=== PATIENT | male | born 1960 | race Caucasian/White ===

== ENCOUNTER 2017-01-04 22:32 | Emergency (ER) | payer BC ==
[~2017-01-04] VITALS: Ht 182.9 cm; Wt 81.5 kg
[2017-01-04 22:37] VITALS: Ht 182.9 cm; Wt 81.5 kg
[2017-01-04] MEDS ORDERED: OXYMETAZOLINE 0.05% NASAL SPRAY 15 ML EA NOSTRIL ONE (23:15)
[2017-01-04] MEDS ORDERED: LIDOCAINE 4% (40mg/ml) 5ml (For Resp.Tx) AEROSOL ONE (23:15)
--- NOTE | 2017-01-04 23:29 | ERPDOC ---
Departure Disposition Decision Date: January 05, 2017 Disposition Decision Time: 01:38 Disposition: 02 TO [facility] Impression Impression Impression: Primary Impression: Thrombocytopenia Additional Impressions: Epistaxis Petechial rash Severity: Moderate Condition: Improved Seen By: Physician only Referrals: MYRA DIEGO MD (Family) Problems/Meds/Labs Reviewed?: Yes Medications reviewed and manag: Yes Follow up care ordered?: Yes Mental Status: Alert, Oriented Scripts No Active Prescriptions or Reported Meds HPI - Headache General Chief Complaint: Nosebleed Stated Complaint: NOSE BLEEDING,HEADACHE X 4 DAYS Time Seen by Provider: 23:08 Source: patient, family Exam Limitations: no limitations HPI - Headache Initial Comments 4-5 days ago the patient began having a frontal headache, and then subsequently began having frequent nosebleeds over the past 4 days. Patient has also noticed that he has petechial rash to the backs of his hands forearms. is concerned that he may have some bleeding disorder and a head bleed. Nosebleeds have come and gone, and currently patient has no active bleeding. When he does get the bleeding, initially feels trickling down the back of his throat, and then at the front on the left nares. Patient has had several episodes in the past of abnormal bleeding in his urine as well as during ejaculation. Occurred At: home Onset: Gradual Duration: 1 week Location: frontal Associated Symptoms: DENIES: confusion, facial pain, fatigue, fever/chills, flushing, loss of consciousness, nasal congestion, nasal drainage, nausea/ vomiting, numbness in legs/feet, rash, seizures, sinus infection, stiff neck, vision changes, weakness Hx of Similar Symptoms: No Allergies: Coded Allergies: No Known Allergies (Unverified , 03/06/15) Past History Vaccines Hx Influenza Vaccination: No Hx Pneumococcal Vaccination: No Review of Systems Constitutional Constitutional: DENIES: appetite decrease, appetite increase, chills, dizziness , fever, weakness ENMT Ears: DENIES: pain Hearing: DENIES: hearing loss, tinnitus Balance: DENIES: vertigo Nose: nosebleeds Mouth/Throat: DENIES: change in swallowing, change in voice, hoarsness, painful swallowing, sore throat Cardiovascular Cardiac: DENIES: chest pain, dyspnea on exertion Rhythm/Rate: DENIES: irregular beat, palpitations, tachycardia Vascular: DENIES: pedal edema Pulmonary Respiratory: DENIES: cough, dyspnea, pleuritic chest pain GI Upper Abdomen: DENIES: dysphagia, heartburn/indigestion, nausea, pain, vomiting Lower Abdomen: DENIES: blood in stool, constipation, diarrhea, pain General: DENIES: burning, dysuria, frequency, pain, urgency Musculoskeletal General: DENIES: cramps, joint pain, joint swelling, pain, weakness Integumentary Skin: rash Neurological General: DENIES: headache, numbness, tingling, vertigo, weakness Psychiatric Psychiatric: DENIES: anxiety, depression, nervousness Physical Exam General General Nourishment: well nourished, well developed, appears stated age, no acute distress General Body Habitus: well groomed Vitals and Pain First Documented Vital Signs Date Time Temp Pulse Resp B/P Pulse Ox O2 Delivery O2 Flow Rate FiO2 01/04/17 22:37 98.5 76 18 170/82 97 Room Air Weight: Kilograms: 81.500 Height (feet): 6 Height (inches): 0 Triage Pain Scale: RN VS reviewed by Provider: Yes Normal Exams: Head: Normocephalic w/o trauma Eyes: Pupils are PERRLA w/ EOMI, No scleral icterus, irritation, or foreign bodies noted ENMT (brief) ENMT Brief: FOUND: TM clear, TM good light reflex, ear canals clear, mucosa moist, normal dentition, NOT FOUND: nasal erythema, nasal exudate, nasal swelling, tonsillar deviation Comments Patient has a small amount of bloody mucus in the left naris, no visible origin of bleeding, no clots Neck (brief) Neck: FOUND: trachea midline, NOT FOUND: adenopathy, nuchal rigidity, spasm, tenderness, thyromegaly, tracheal deviation Respiratory (brief) Respiratory: FOUND: clear all benton, equal bilaterally, symmetrical, NOT FOUND : rales, tenderness, wheezes Cardiovascular (brief) Cardiac: FOUND: regular rate, regular rhythm, NOT FOUND: click, gallop, murmur , pedal edema Capillary Refill: <2 sec Pulses: all distal extremities, equal, strong Abdomen (brief) Abdominal Brief: FOUND: bowel normo active x4, soft, NOT FOUND: distended, hepatosplenomegaly, tender Lymphatic (brief) Lymphatic Brief: NOT FOUND: adenopathy, lymphedema Musculoskeletal (brief) Musculoskeletal Brief: NOT FOUND: deformity, loss of motion, spasm, tenderness Integumentary (brief) Integumentary Brief: FOUND: dry, pink, rash, warm Neurologic (brief) Neurological Brief: FOUND: CN w/o gross def to obs, DTR 2/4 all extremities, gait w/o gross def to obs, motor-no gross deficits, sensory-no gross deficits, NOT FOUND: ataxia Psychiatric (brief) Psychiatric Brief: FOUND: alert, attentive, normal affect, oriented Progress Results/Orders Orders Procedure Category Date Status Time Oxymetazoline Nasal PHA 01/04/17 Complete [place] (Afrin Nasal S 23:15 Lidocaine 4% PHA 01/04/17 Complete (Resp.Tx) (Lidocaine 23:15 Cbc W/Auto LAB 01/04/17 Complete Diff-Reflex Manual PTT LAB 01/04/17 Complete INR LAB 01/04/17 Complete Cmp - Comprehensive LAB 01/04/[address] Head W/O Contrast CT 01/04/17 Taken Lab Results Laboratory Tests Test 01/04/17 23:45 White Blood Count 2.0T/MM3 Red Blood Count 3.64M/MM3 Hemoglobin 11.9GM/DL Hematocrit 31.6% Mean Corpuscular Volume 86.8UM3 Mean Corpuscular Hemoglobin 32.7UUG Mean Corpuscular Hemoglobin Concent 37.7GM/DL RDW Standard Deviation 37.4FL Platelet Count 8T/MM3 Mean Platelet Volume UM3 Immature Granulocyte % (Auto) % Neutrophils (%) (Auto) % Lymphocytes (%) (Auto) % Monocytes (%) (Auto) % Eosinophils (%) (Auto) % Basophils (%) (Auto) % Absolute Immature Granulocyte (auto T/MM3 Absolute Neutrophils (auto) T/MM3 Absolute Lymphocytes (auto) T/MM3 Absolute Monocytes (auto) T/MM3 Absolute Eosinophils (auto) T/MM3 Absolute Basophils (auto) T/MM3 Neutrophils % (Manual) 24.0% Band Neutrophils % 2.0% Lymphocytes % (Manual) 48.0% Monocytes % (Manual) 18.0% Basophils % (Manual) 2.0% Metamyelocytes % 2.0% Myelocytes % 2.0% Blast Cells % 2.0% Absolute Neutrophils (Manual) 0.5T/MM3 Band Neutrophils # 0.0T/MM3 Lymphocytes # (Manual) 1.0T/MM3 Monocytes # (Manual) 0.4T/MM3 Basophils # (Manual) 0.0T/MM3 Metamyelocytes # 0.0T/MM3 Myelocytes # 0.0T/MM3 Nucleated Red Blood Cells 4 Blast Cells # 0.0T/MM3 Red Cell Morphology Comment Normal Prothromb Time International Ratio 1.23 Activated Partial Thromboplast Time 27.3SEC Turbidity 22 Sodium Level 142MEQ/L Potassium Level 3.7MEQ/L Chloride Level 103MEQ/L Carbon Dioxide Level 25MEQ/L Anion Gap 14MEQ/L Blood Urea Nitrogen 15.0MG/DL Creatinine 0.7MG/DL Glomerular Filtration Rate Calc 116 BUN/Creatinine Ratio 21RATIO Glucose Level 290MG/DL Calculated Osmolality 285MOSM/KG Calcium Level 9.0MG/DL Total Bilirubin 0.70MG/DL Icterus Index < 2 Aspartate Amino Transf (AST/SGOT) 50U/L Alanine Aminotransferase (ALT/SGPT) 57U/L Alkaline Phosphatase 73U/L Total Protein 6.6G/DL Albumin 4.2G/DL Globulin 2.4G/DL Albumin/Globulin Ratio 1.8RATIO Chemistry Specimen Hemolysis < 15 Medications Current ED Medications Oxymetazoline HCl (Afrin Nasal [place]) 2 spray O ONCE EA NOSTRIL ; Start at 23:15; Stop 01/04/17 at 23:16; Status DC Lidocaine HCl (LIDOCAINE 4% (Resp.Tx)) 4 mg O ONCE AEROSOL ; Start 01/04/17 at 23:15; Stop 01/04/17 at 23:16; Status DC Progress Progress Shared decision making, patient and his would like testing done at this time, CT head - normal CBC - negative again abnormalities including low white blood cell count at 2, low platelet count at 8 CMP - essentially normal, mild elevated glucose PTT - normal INR - David elevated at 1.2 Case is discussed with Dr. Johnston, then Dr. Dawson and Dr. Richter - will admit to [facility] for Med I and Hem/Onc evaluation, platelet replacement and bone marrow biopsy tomorrow This patient has no IV at this time, and is medically stable, patient would prefer to go by private vehicle. MORGAN WANG MD January 04, 2017 23:29
--- NOTE | 2017-01-04 23:30 | NUR ---
LAB NOTIFIED OF NEED FOR BLOOD DRAW
--- NOTE | 2017-01-04 23:39 | NUR ---
BACK FROM CT
--- NOTE | 2017-01-04 23:42 | NUR ---
LAB IN ROOM WITH PT
[2017-01-04 23:49] LABS: HCT - HEMATOCRIT 31.6 % (41-53); HGB - HEMOGLOBIN 11.9 GM/DL (13.5-17.5); MEAN CORPUSCULAR HGB 32.7 UUG (26-34); MEAN CORPUSCULAR HGB CONC(MCHC 37.7 GM/DL (31-37); MEAN CORPUSCULAR VOLUME 86.8 UM3 (80-100); RED BLOOD COUNT 3.64 M/MM3 (4.50-5.90)
[2017-01-04 23:56] LABS: INR 1.23 (0.77-1.03); PROTHROMBIN TIME 13.5 SEC (9.48-12.52); PTT 27.3 SEC (24-36)
[2017-01-04 23:59] LABS: ALBUMIN 4.2 G/DL (3.5-5.0); ALBUMIN/GLOBULIN RATIO 1.8 RATIO (1.1-2.2); ALKALINE PHOSPHATASE 73 U/L (38-126); ALT (SGPT) 57 U/L (21-72); ANION GAP 14 MEQ/L (5-15); AST (SGOT) 50 U/L (17-59); BUN/CREATININE RATIO 21 RATIO (6-26); CHLORIDE 103 MEQ/L (98-107); CO2 - CARBON DIOXIDE 25 MEQ/L (22-30); CREATININE 0.7 MG/DL (0.8-1.5); GLOMERULAR FILTRATION RATE 116; GLUCOSE 290 MG/DL (75-110); POTASSIUM 3.7 MEQ/L (3.6-5); SODIUM 142 MEQ/L (134-144); TOTAL PROTEIN 6.6 G/DL (6.3-8.2)
[2017-01-05 00:13] LABS: MONOCYTES # (MANUAL) 0.4 T/MM3 (0-0.8); NEUTROPHILS #(MANUAL)-ABSOLUTE 0.5 T/MM3 (1.8-7.7); NUCLEATED RED BLOOD CELLS 4; TOTAL CELLS COUNTED 50 %
--- NOTE | 2017-01-05 00:57 | NUR ---
STATUS PT ON CART AWAKE, DENIES NEEDS. AT BEDSIDE.
--- NOTE | 2017-01-05 02:00 | NUR ---
REPORT GIVEN TO JOHN VELASQUEZ IN [facility].
[2017-01-05 02:01] VITALS: BP 140/70; PULSE 76; RESP 18; TEMP 98.5; O2SAT 95
--- NOTE | 2017-01-05 07:59 | DI ---
Indication: ITS.REASON: frontal headache and bleeding problems PROCEDURE: CT HEAD W/O CONTRAST: Encounter: Initial Comparison: None Technique: Axial CT images through the head were performed without contrast. Iterative Reconstruction dose reducing technique was utilized. FINDINGS: The ventricles are of normal size, shape, and contour for the patient's age. There are scattered areas of low attenuation in the white matter which most likely represent changes from chronic microvascular ischemia. The brainstem, cerebellum, and cerebral hemispheres otherwise have a normal morphology and CT attenuation. There is no evidence of midline displacement. No hemorrhage, signs of acute territorial stroke, mass effect, mass lesions, or edema is evident. The visualized portions of the skull base, midface, and calvarium demonstrate no abnormality. The paranasal sinuses are well aerated and free of significant disease. The tympanic and mastoid cavities appear normal. IMPRESSION: No acute intracranial abnormality or hemorrhage. There is a preliminary report by [employer] [facility]. .
== END 2017-01-05 02:01 | disposition short-term general hospital (02) ==
LOC: ED 22:32
DX: R04.0 Epistaxis (principal); R51 Headache; D69.6 Thrombocytopenia, unspecified; R23.3 Spontaneous ecchymoses
CPT/HCPCS: 36415; 80053; 85025; 85610; 85730